=== PATIENT | female | born 1970 | race Caucasian/White ===

== ENCOUNTER → 2018-09-21 | Outpatient (CLI) | payer BC, MEDICAID ==
--- NOTE | 2018-09-23 12:01 | XCELERA REPORT ---
[address] [address] Lower Extremity Arterial Evaluation Name: LAKHWINDER VAIL Age: 48 yrs Gender: Female : 1970 Patient Status: Preadmit Patient Location: Study Date: 09/21/2018 08:17 AM Procedure: A color flow and duplex scan of the lower extremity arteries was performed bilaterally with velocity and waveform anaylsis. Ankle brachial indicies performed. Reason For Study: CLAUDICATION Ordering Physician: YOSEPH QUINTANILLA Performed By: [place] Measurements and Calculations Right Left MANAGER ANIMATION PSV 133.6 122.6 cm/sec Prox PFA PSV -84.5 -82.5 cm/sec Prox SFA PSV -127.3 -118.6cm/sec Mid SFA PSV -108.9 -119.4cm/sec Dist SFA PSV -61.6 -82.2 cm/sec Prox Pop A PSV 53.8 59.7 cm/sec Dist FATMATA PSV 36.7 40.0 cm/sec Dist NEWS VIDEOGRAPHER PSV 69.4 73.5 cm/sec Israel Pedis PSV -43.5 -33.4 cm/sec Right Side Arterial Evaluation Normal velocity and triphasic waveforms noted from the Common Femoral artery to the infrageniculate vessels . Ankle Brachial index 1.06. Left Side Arterial Evaluation Normal velocity and triphasic waveforms noted from the Common Femoral artery to the infrageniculate vessels . Ankle Brachial index 1.06. Interpretation Summary No hemodynamically significant lesions in the bilateral lower extremities, on duplex imaging, at rest. Ankle Brachial indices are normal, suggesting normal arterial flow. : YOSEPH QUINTANILLA > Yoseph Quintanilla
== END ==
LOC: SP 07:54
PROVIDERS: ATTEND Surgery
DX: I73.9 Peripheral vascular disease, unspecified (principal)
CPT/HCPCS: 93925

== ENCOUNTER 2019-03-24 15:51 | Emergency (ER) | payer OTHER, BC, MEDICAID ==
[2019-03-24 16:03] VITALS: BP 119/76
[2019-03-24] MEDS ORDERED: ACETAMINOPHEN 325 MG TABLET PO ONE (16:45)
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
--- NOTE | 2019-03-24 18:03 | RADIOLOGY REPORT (SQ) ---
EXAM DESCRIPTION: CERV SP 3 VIEW OR LESS COMPLETED DATE/TIME: 03/24/2019 5:34 pm REASON FOR STUDY: cervical spine tenderness COMPARISON: None. NUMBER OF VIEWS: Three views. TECHNIQUE: AP, lateral and odontoid radiographic images acquired of the cervical spine. LIMITATIONS: None. FINDINGS: MINERALIZATION: Normal. ALIGNMENT: Anatomic. VERTEBRAE: Vertebral bodies of normal height. DISCS: No significant disc space narrowing. No large osteophytes. HARDWARE: None in the spine. SOFT TISSUES: No masses or calcifications. Lung apices clear. OTHER: No other significant finding. IMPRESSION: No fracture identified. TECHNICAL DOCUMENTATION: JOB ID: [id number] [place]-72 2010 [employer]- All Rights Reserved Reading location - IP/workstation name: [email or web address]
== END 2019-03-24 18:28 | disposition home or self-care (01) ==
LOC: ER 15:51
DX: S16.1XXA Strain of muscle, fascia and tendon at neck level, initial encounter (principal); M54.2 Cervicalgia; M54.9 Dorsalgia, unspecified; V43.52XA Car driver injured in collision with other type car in traffic accident, initial encounter; F17.200 Nicotine dependence, unspecified, uncomplicated
CPT/HCPCS: 72040; 99283